=== PATIENT | male | born 1975 | race Caucasian/White ===

== ENCOUNTER 2018-06-06 09:48 | Emergency (ER) | payer SELFPAY ==
[2018-06-06] MEDS ORDERED: ASPIRIN 81 MG CHEW PO ONE (09:55)
[2018-06-06 10:11] LABS: PLATELET COUNT, AUTOMATED 225 K/uL (150-450)
--- NOTE | 2018-06-06 10:15 | EKG ---
FACILITY: [facility] PATIENT NAME: AINSLEY LANGSTON : [id number] MR: [id number] V: [id number] EXAM DATE: ORDERING PHYSICIAN: MARLEE SANTOS TECHNOLOGIST: MAHENDRA Lujan Reason : CP Blood Pressure : / mmHG Vent. Rate : 088 BPM Atrial Rate : 088 BPM P-R Int : 132 ms QRS Dur : 090 ms QT Int : 372 ms P-R-T Axes : 070 044 072 degrees QTc Int : 450 ms Normal sinus rhythm with sinus arrhythmia Normal ECG No previous ECGs available Confirmed by Artur Ramos ([id number]) on 06/06/2018 9:44:29 PM Referred By: DANIELLE Confirmed By:Artur Diego
[2018-06-06 10:16] LABS: INR 0.97
[2018-06-06] MEDS ORDERED: KETOROLAC 15 MG/ML VIAL IVP ONE (10:25)
--- NOTE | 2018-06-06 11:02 | RADIOLOGY IMAGING REPORT ---
FACILITY: [facility] PATIENT NAME: Dandre Mckeon : 1975 MR: [id number] V: [id number] EXAM DATE: ORDERING PHYSICIAN: MARLEE SANTOS TECHNOLOGIST: Location: [facility] Patient: Dandre Mckeon : 1975 Visit/Account:[id number] Date of Sevice: 06/06/2018 CHEST PA LAT HISTORY: Chest pain. Left arm pain. COMPARISON: None available. FINDINGS: Lines/tubes: None. Lungs/pleura: Negative. Heart: Negative. Mediastinum: Negative. Bony structures/body wall: Negative. IMPRESSION: No acute cardiopulmonary process. Report Dictated By: Marcin Harmon MD at 06/06/2018 10:57 AM Report E-Signed By: Marcin Harmon MD at 06/06/2018 10:58 AM WSN:[email or web address]
[2018-06-06] MEDS ORDERED: FAMO20TA28 PO (11:26)
--- NOTE | 2018-06-06 11:29 | ER Report ---
History and Physical Time Seen By MD: 10:00 Hx. of Stated Complaint: pt has had intermittant chest pain since Tuesday , with numbness in l arm; and L facial numbness HPI/ROS CHIEF COMPLAINT: Chest pain HISTORY OF PRESENT ILLNESS: Patient is a 42-year-old male who reports no significant or contributory past medical history who has been having episodes of left-sided chest pain with some radiation to the left arm and jaw no that occurs typically at rest. Episodes can last anywhere from a few minutes to an hour or so. He does not offer any palliative or provoking factors. Patient states he does have a family history of heart disease as well as diabetes but not currently diagnosed in himself. Patient denies any strenuous activity that could've caused muscle strain. Patient states that he did think this could be i ndigestion so he took [id number] Pepcid which did seem to cause improvement in symptoms. Because the symptoms are recurrent however he presents to the emergency department for evaluation. REVIEW OF SYSTEMS: Constitutional: No fever, no chills. Eyes: No discharge. ENT: No sore throat. Cardiovascular: Left-sided chest pain Respiratory: No cough, no shortness of breath. Gastrointestinal: No abdominal pain, no vomiting. Genitourinary: No hematuria. Musculoskeletal: No back pain. Skin: No rashes. Neurological: No headache. Past Medical/Surgical History Denies significant past medical history Hx Substance Use Disorder: No Hx Alcohol Use: No (not for 5 yrs) Constitutional Vital Sign - Last 24 Hours 06/06/18 06/06/18 06/06/18 06/06/18 09:52 09:52 10:00 10:03 Temp 98.2 Pulse 83 91 Resp 20 16 B/P (MAP) 164/120 164/120 (135) 145/97 (113) Pulse Ox 99 96 O2 Delivery Room Air 06/06/18 06/06/18 06/06/18 06/06/18 10:18 10:30 10:33 10:48 Pulse 94 80 78 Resp 11 20 B/P (MAP) 134/92 (106) Pulse Ox 95 96 92 Physical Exam General Appearance: The patient is alert, has no immediate need for airway protection and no signs of toxicity. Eyes: Pupils equal and round no pallor or injection. ENT, Mouth: Mucous membranes are moist. Respiratory: There are no retractions, lungs are clear to auscultation. Cardiovascular: Regular rate and rhythm. Gastrointestinal: Abdomen is soft and non tender, no masses, bowel sounds normal. Neurological: Awake and alert Skin: Warm and dry, no rashes. Musculoskeletal: Neck is supple non tender. Extremities are nontender, nonswollen and have full range of motion. Medical Decision Making Data Points Result Diagram: 06/06/18 1001 06/06/18 1001 Laboratory Hematology Test 06/06/18 00:00 06/06/18 10:01 06/06/18 11:11 Lipase 140 U/L (23-300) Red Blood Count 6.11 M/uL (4.00-5.60) Mean Corpuscular Volume 86.0 fL (80.0-96.0) Mean Corpuscular Hemoglobin 28.7 pg (26.0-33.0) Mean Corpuscular Hemoglobin Concent 33.3 g/dL (32.0-36.0) Red Cell Distribution Width 12.2 % (11.5-14.5) Mean Platelet Volume 6.8 fL (7.2-11.1) Neutrophils (%) (Auto) 72.1 % (39.4-72.5) Lymphocytes (%) (Auto) 23.4 % (17.6-49.6) Monocytes (%) (Auto) 3.0 % (4.1-12.4) Eosinophils (%) (Auto) 0.7 % (0.4-6.7) Basophils (%) (Auto) 0.8 % (0.3-1.4) Nucleated RBC Relative Count (auto) 0.0 /100WBC Neutrophils # (Auto) 4.0 K/uL (2.0-7.4) Lymphocytes # (Auto) 1.3 K/uL (1.3-3.6) Monocytes # (Auto) 0.2 K/uL (0.3-1.0) Eosinophils # (Auto) 0.0 K/uL (0.0-0.5) Basophils # (Auto) 0.0 K/uL (0.0-0.1) Nucleated RBC Absolute Count (auto) 0.00 K/uL Prothrombin Time 12.8 seconds (12.0-14.4) Prothromb Time International Ratio 0.97 Activated Partial Thromboplast Time 30 seconds (23-35) Sodium Level 140 mmol/L (137-145) Potassium Level 4.3 mmol/L (3.5-5.0) Chloride Level 107 mmol/L (98-107) Carbon Dioxide Level 25 mmol/L (22-30) Blood Urea Nitrogen 16 mg/dl (9-21) Creatinine 1.10 mg/dl (0.66-1.25) Glomerular Filtration Rate Calc > 60.0 Random Glucose 116 mg/dl (75-110) Calcium Level 9.7 mg/dl (8.4-10.2) Total Bilirubin 1.7 mg/dl (0.2-1.3) Aspartate Amino Transf (AST/SGOT) 21 U/L (0-35) Alanine Aminotransferase (ALT/SGPT) 29 U/L (0-56) Alkaline Phosphatase 65 U/L (0-126) Troponin I < 0.012 ng/ml Total Protein 8.3 g/dl (6.3-8.2) Albumin 5.2 g/dl (3.5-5.0) Chemistry Test 06/06/18 00:00 06/06/18 10:01 06/06/18 11:11 Lipase 140 U/L (23-300) White Blood Count 5.5 k/uL (4.5-11.0) Red Blood Count 6.11 M/uL (4.00-5.60) Hemoglobin 17.5 g/dL (14.0-18.0) Hematocrit 52.6 % (42.0-52.0) Mean Corpuscular Volume 86.0 fL (80.0-96.0) Mean Corpuscular Hemoglobin 28.7 pg (26.0-33.0) Mean Corpuscular Hemoglobin Concent 33.3 g/dL (32.0-36.0) Red Cell Distribution Width 12.2 % (11.5-14.5) Platelet Count 225 K/uL (150-450) Mean Platelet Volume 6.8 fL (7.2-11.1) Neutrophils (%) (Auto) 72.1 % (39.4-72.5) Lymphocytes (%) (Auto) 23.4 % (17.6-49.6) Monocytes (%) (Auto) 3.0 % (4.1-12.4) Eosinophils (%) (Auto) 0.7 % (0.4-6.7) Basophils (%) (Auto) 0.8 % (0.3-1.4) Nucleated RBC Relative Count (auto) 0.0 /100WBC Neutrophils # (Auto) 4.0 K/uL (2.0-7.4) Lymphocytes # (Auto) 1.3 K/uL (1.3-3.6) Monocytes # (Auto) 0.2 K/uL (0.3-1.0) Eosinophils # (Auto) 0.0 K/uL (0.0-0.5) Basophils # (Auto) 0.0 K/uL (0.0-0.1) Nucleated RBC Absolute Count (auto) 0.00 K/uL Prothrombin Time 12.8 seconds (12.0-14.4) Prothromb Time International Ratio 0.97 Activated Partial Thromboplast Time 30 seconds (23-35) Glomerular Filtration Rate Calc > 60.0 Calcium Level 9.7 mg/dl (8.4-10.2) Total Bilirubin 1.7 mg/dl (0.2-1.3) Aspartate Amino Transf (AST/SGOT) 21 U/L (0-35) Alanine Aminotransferase (ALT/SGPT) 29 U/L (0-56) Alkaline Phosphatase 65 U/L (0-126) Troponin I < 0.012 ng/ml Total Protein 8.3 g/dl (6.3-8.2) Albumin 5.2 g/dl (3.5-5.0) Coagulation Test 06/06/18 10:01 Prothrombin Time 12.8 seconds Prothromb Time International Ratio 0.97 Activated Partial Thromboplast Time 30 seconds EKG/Imaging EKG Interpretation EKG shows sinus rhythm with ventricular rate of [address] segment changes or abnormality. Monitor Interpretation: Normal Sinus Rhythm Imaging FACILITY: [facility] PATIENT NAME: Dandre Mckeon : 1975 MR: [id number] V: [id number] EXAM DATE: [id number] ORDERING PHYSICIAN: MARLEE SANTOS [place]CHNOLOGIST: [place] [facility] [place]andre Mc[place]on : 1975 Visit/Account:[id number] Date of Sevice: 06/06/2018 CHEST PA LAT HISTORY: Chest pain. Left arm pain. COMPARISON: None available. FINDINGS: Lines/tubes: None. Lungs/pleura: Negative. Heart: Negative. Mediastinum: Negative. Bony structures/body wall: Negative. IMPRESSION: No acute cardiopulmonary process. Report Dictated By: Marcin Harmon MD at 06/06/2018 10:57 AM Report E-Signed By: Marcin Harmon MD at 06/06/2018 10:58 AM WSN:[email or web address] ED Course/Re-evaluation ED Course 06/06/2018 11:28:37 am patient with negative cardiac workup here. Given the fact the patient has had symptoms over the past 3 days and with a negative troponin I feel it is unlikely along with a normal EKG that this discomfort represents cardiac discomfort. Patient will be referred to primary care physician to establish care. We'll discharge home Decision to Disposition Date: Jun 06, 2018 Decision to Disposition Time: 11:24 Depart Departure Latest Vital Signs Vital Signs Date Time Temp Pulse Resp B/P (MAP) Pulse Ox O2 Delivery O2 Flow Rate FiO2 06/06/18 10:48 78 92 06/06/18 10:33 20 06/06/18 10:30 134/92 (106) 06/06/18 09:52 98.2 Room Air Impression: Primary Impression: Non-cardiac chest pain Condition: Improved Disposition: HOME OR SELF-CARE Referrals: YUDITH SORIA MD make a follow up appointment in the next 4-6 weeks to establish care as a new patient New Scripts Famotidine (PEPCID) 20 Mg Tablet 20 MG PO QDAY, #30 TAB 0 Refills Prov: MARLEE SANTOS MD 06/06/18 Patient Instructions: Gastroesophageal Reflux Disease (ED), Noncardiac Chest Pain (ED) Additional Instructions: Return to the emergency department if you have worsening chest pain and/or shortness of breath. MARLEE SANTOS MD Jun 06, 2018 11:29
[2018-06-06 11:30] VITALS: BP 129/93
== END 2018-06-06 11:39 | disposition home or self-care (01) ==
LOC: ER 10:01
DX: R07.89 Other chest pain (principal)
CPT/HCPCS: 71046; 83690; 84484; 85025; 85610; 85730; 87502; 93005; 96374; 99284; J1885; 82040; 82247; 82310; 82374; 82435; 82565; 82947; 84075; 84132; 84155; 84295; 84450; 84460; 84520